=== PATIENT | male | born 1950 | race Two or more races ===

== ENCOUNTER 2022-06-03 07:32 | Inpatient (IN) | payer OTHER ==
[~2022-06-03] VITALS: Ht 162.6 cm; Wt 77.1 kg
== END 2022-06-04 13:01 | disposition left against medical advice (07) | DRG 552 ==
LOC: ER 07:32 → MEDJ 20:03
PROVIDERS: ADMIT Internal Medicine; ATTEND Internal Medicine
PROC: BR29ZZZ Computerized Tomography (CT Scan) of Lumbar Spine (ICD-10-PCS; principal; 2022-06-03)
PROC: B020ZZZ Computerized Tomography (CT Scan) of Brain (ICD-10-PCS; 2022-06-03)
PROC: 3E0F7SF Introduction of Other Gas into Respiratory Tract, Via Natural or Artificial Opening (ICD-10-PCS; 2022-06-03)
DX: M48.061 Spinal stenosis, lumbar region without neurogenic claudication (principal); E87.1 Hypo-osmolality and hyponatremia; E86.0 Dehydration; M51.27 Other intervertebral disc displacement, lumbosacral region; M54.2 Cervicalgia; M62.838 Other muscle spasm; E87.6 Hypokalemia; M62.81 Muscle weakness (generalized); F17.200 Nicotine dependence, unspecified, uncomplicated; F10.10 Alcohol abuse, uncomplicated; Z20.822 Contact with and (suspected) exposure to COVID-19

== ENCOUNTER 2022-08-30 12:10 | Outpatient (CLI) | payer OTHER | END 2022-08-30 12:13 | disposition home or self-care (01) | LOC: RAD 12:10 | PROVIDERS: ATTEND Orthopaedic Surgery | DX: M79.605 Pain in left leg (principal); M54.50 Low back pain, unspecified ==